=== PATIENT | male | born 2000 | race Caucasian/White ===

== ENCOUNTER 2022-12-19 07:27 | Outpatient (REF) | payer OTHER, SELFPAY ==
[2022-12-19 11:24] LABS: MANUAL DIFF FLAG NO
[2022-12-19 11:48] LABS: Basophils Percent Auto 0.2 % (0-2); Eosinophils Absolute Auto 0.3 X10*3/uL (0.0-0.4); Eosinophils Percent Auto 5.6 % (0-4); Hematocrit 45.6 % (42.0-52.0); Hemoglobin 14.7 g/dl (14.0-18.0); Imm Gran Abs Auto 0.01 X10*3/uL (0.00-0.03); Imm Gran Pct Auto 0.2 % (0.0-0.4); Lymphocytes Absolute Auto 2.1 X10*3/uL (1.2-4.9); Lymphocytes Percent Auto 36.3 % (20-40); Mean Corpuscular HGB Conc 32.2 g/dl (31.0-36.0); Mean Corpuscular Hemoglobin 28.6 pg (27.0-33.0); Mean Corpuscular Volume 88.7 fL (80.0-98.0); Mean Platelet Volume 9.6 fL (9.4-12.4); Monocytes Absolute Auto 0.5 X10*3/uL (0.1-1.2); Monocytes Percent Auto 9.2 % (2-11); Neutrophils Absolute Auto 2.8 x10*3/uL (2.0-8.3); Neutrophils Percent Auto 48.5 % (45-73); Platelet Count 367 X10*3/uL (160-400); Red Blood Count 5.14 X10*6/uL (4.60-5.80); Red Cell Distribution Width 12.4 % (11.0-16.0); White Blood Count 5.7 X10*3/uL (4.8-10.8)
[2022-12-19 12:14] LABS: Troponin-I High Sensitivity < 3.5 ng/L (<3.5-35.0)
[2022-12-19 12:23] LABS: Alanine Aminotransferase 31 U/L (0-40); Albumin Level 4.1 g/dL (3.5-5.0); Alkaline Phosphatase 96 U/L (39-117); Anion Gap 14 (12-20); Aspartate Amino Transferase 18 U/L (5-37); Bilirubin Total 0.5 mg/dL (0.0-1.0); Blood Urea Nitrogen 12 mg/dL (9-16); Calcium 9.3 mg/dL (8.4-10.2); Carbon Dioxide 25 mmol/L (22-29); Chloride 105 mmol/L (96-108); Estimated Glomerular Filt Rate > 60; Glucose Random 120 mg/dL (60-115); Potassium 4.9 mmol/L (3.3-5.1); Sodium 139 mmol/L (135-145); TSH reflex Free T4 2.32 uIU/mL (0.32-4.0); Total Protein 8.3 g/dL (6.5-8.0)
== END 2022-12-19 07:28 | disposition home or self-care (01) ==
LOC: HO.WFDLDS 07:27
PROVIDERS: Visit Provider Family Medicine
DX: Z00.00 Encounter for general adult medical examination without abnormal findings (principal); R00.0 Tachycardia, unspecified
CPT/HCPCS: 36415; 80053; 84443; 84484; 85025

== ENCOUNTER 2022-12-28 07:12 | Outpatient (REF) | payer OTHER, SELFPAY ==
--- NOTE | ~2022-12-28 | XR_ITS ---
EXAMINATION: XR CHEST CLINICAL INFORMATION: Tachycardia COMPARISON: None available. TECHNIQUE: 2 views of the chest were obtained. FINDINGS: No significant abnormality is noted involving the heart, lungs, mediastinum, bony thorax or soft tissues. XR/XR chest 2V IMPRESSION: No acute disease.
== END 2022-12-28 07:13 | disposition home or self-care (01) ==
LOC: HO.XRAY 07:12
PROVIDERS: PCP Family Medicine; Visit Provider Family Medicine
DX: R00.0 Tachycardia, unspecified (principal); R94.31 Abnormal electrocardiogram [ECG] [EKG]
CPT/HCPCS: 71046

== ENCOUNTER → 2023-01-03 14:16 | Outpatient (BNVA) | payer OTHER, SELFPAY | PROVIDERS: PCP Family Medicine; Visit Provider Internal Medicine | DX: Z13.89 Encounter for screening for other disorder (principal) ==

== ENCOUNTER → 2023-02-01 09:57 | Outpatient (REF) | payer OTHER, SELFPAY ==
--- NOTE | 2023-02-01 10:00 | HM_ITS ---
Conclusion: 1. Patient was monitored for total period of 3 days 2. Baseline was normal sinus rhythm with average heart of 84 beats per minute 3. No significant pauses or bradycardia noted 4. Occasional PVCs noted with total burden of 0.3% 5. No patient reported events MTDD
--- NOTE | 2023-02-01 10:00 | CA_ITS ---
Transthoracic Echocardiogram Patient (Last, First, Middle): Jamarcus Zendejas J Gender: Male Date of : 2000 Age: 22 Procedure Date: 02/01/2023 Procedure Type: Transthoracic Echocardiogram Location: OP Height: 177.8 cm Weight: 136.08 kg BSA: 2.48 m2 Heart Rate: 116 bpm BP: 152 / 80 mmHg Parachute Rigger: SB Referring MD: Konrad Boston MD Symptoms: R00.0 - Tachycardia, unspecified Study Quality: Adequate w contrast ECG Rhythm: Sinus tachycardia Conclusions: - The left ventricular systolic function is normal. The calculated ejection fraction is 67% by biplane method. - No obvious valvular pathology seen on this study. Findings Procedure Information Contrast agent, definity, is being given per protocol without apparent complications. Left Ventricle Normal left ventricular cavity size. There is mildly increased left ventricular wall thickness. The left ventricular systolic function is normal. The calculated ejection fraction is 67% by biplane method. There is no evidence of regional wall motion abnormalities. Diastolic function is normal for age. Right Ventricle Normal right ventricular cavity size and systolic function. Atria Both atria are normal in size. Aortic Valve The aortic valve was not well visualized. There is no aortic valve stenosis. There is no aortic valve regurgitation. Mitral Valve The mitral valve appears normal. There is no mitral valve regurgitation. There is no mitral valve stenosis. Pulmonic Valve The pulmonic valve is likely normal. Tricuspid Valve There is no tricuspid valve regurgitation. Tricuspid regurgitation envelope is inadequate for calculation of right ventricular systolic pressure. Great Vessels The asc aorta is normal in size. Venous The inferior vena cava is normal in size and collapses less than 50% with inspiration. Pericardium/Pleural There is no evidence of pericardial effusion. Prior Study Comparison No prior study available for comparison. Recommendations, Care & Conclusions No obvious valvular pathology seen on this study. Measurements 2D Linear Measurements IVSd: 1.18 0.6-0.9/0.6-1.0 cm LVIDd: 4.29 3.9-5.3/4.2-5.9 cm LVIDd Index: 1.73 2.4-3.2/2.2-3.1 cm/m2 LVIDs: 2.75 2.0-3.6 cm LVPWd: 1.04 0.7-1.1 cm LA Diam: 3.70 2.7-3.8/3.0-4.0 cm LAIDs Index: 1.49 1.5-2.3 cm/m2 LV Mass: 204.82 67-162/88-224 g LV Mass Index: 82.59 43-95/49-115 g/m2 LVOT Diam: 2.00 3.0+(-)1.3 cm 2D Systolic Function EF 4C: 70.00 >55% EF 2C: 63.60 >55% EF BiP: 67.30 >55% Mitral Valve MV Pk E: 0.69 MV PK A: 0.64 MV Decel Time: 123.00 E/A: 1.10 E'Lateral: 14.00 E'Medial: 9.25 E/E' Med: 7.40 E/E' Lat: 4.90 PHT: 36.00 MVA PHT: 6.11 Decel Haralson: 5.58 Aortic Valve AoV Pk Rafa: 1.14 AoV Pk Grad: 5.00 WILMAN: 3.00 LVOT LVOT Pk Rafa: 1.09 LVOT Mn Rafa: 0.71 LVOT VTI: 0.16 LVOT Pk Grad: 5.00 LVOT Mn Grad: 2.00 LVOT Diam: 2.00 LVOT Area: 3.14 Diastolic Function MV Pk E: 0.69 MV Pk A: 0.64 E/A: 1.10 E'Medial: 9.25 E/E' Med: 7.40 E' Laterial: 14.00 E/E' Lat: 4.90 Right Ventricle TAPSE (mm): 17.00 TVS' Rafa: 15.30 Tricuspid Valve RA Press: 8.00 Great Vessels Aorta Sinus of Valsalva: 3.20 2.0-3.5 cm Ao Asc: 2.80 2.1-3.4 cm Ao Arch: 2.70 Ao Desc: 1.70 Pulmonary Valve PV Pk Rafa: 1.29 Peak PV Grad: 7.00 Updated in Other Vendor System with Status of Final Konrad Boston MD electronically signed on 02/02/2023 11:39:38 AM with status of Final
== END ==
LOC: HO.CARD 09:57
PROVIDERS: PCP Family Medicine; Visit Provider Internal Medicine
DX: R00.0 Tachycardia, unspecified (principal); I49.3 Ventricular premature depolarization; G47.33 Obstructive sleep apnea (adult) (pediatric)
CPT/HCPCS: 93242; 93306; Q9957

== ENCOUNTER → 2023-03-02 13:01 | Outpatient (REF) | payer OTHER, SELFPAY | LOC: HO.SL 13:01 | PROVIDERS: PCP Family Medicine; Visit Provider Internal Medicine | DX: G47.33 Obstructive sleep apnea (adult) (pediatric) (principal); R00.0 Tachycardia, unspecified | CPT/HCPCS: 95806 ==

== ENCOUNTER → 2023-03-02 13:07 | Outpatient (BNV) | payer OTHER, SELFPAY | PROVIDERS: PCP Family Medicine; Visit Provider Internal Medicine | DX: R06.83 Snoring (principal) | CPT/HCPCS: 95806 ==

== ENCOUNTER → 2023-04-05 15:55 | Outpatient (REF) | payer OTHER, SELFPAY | LOC: HO.SL 15:55 | PROVIDERS: PCP Family Medicine; Visit Provider Internal Medicine | DX: G47.33 Obstructive sleep apnea (adult) (pediatric) (principal); R00.0 Tachycardia, unspecified | CPT/HCPCS: 95806 ==

== ENCOUNTER → 2023-04-05 19:00 | Outpatient (BNV) | payer OTHER, SELFPAY | PROVIDERS: PCP Family Medicine; Visit Provider Internal Medicine | DX: R06.83 Snoring (principal) | CPT/HCPCS: 95806 ==

== ENCOUNTER 2023-04-06 14:40 | Outpatient (AMB) | payer OTHER, SELFPAY ==
--- NOTE | 2023-04-06 14:42 | MHC.OFFVIS ---
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: No Accompanied by: Self / Same As Patient Allergies Nuts Allergy (Unknown, Uncoded 04/06/23 14:46) anaphylaxis oxycodone Allergy (Unknown, Uncoded 04/06/23 14:46) nausea and vomiting Medication List - Last Reconciled 04/06/23 by Konrad Boston MD cetirizine (Zyrtec) 10 mg PO DAILY fluticasone propionate 220 mcg/actuation (Flovent HFA) 1 puff inhalation Q12H 30 days metoprolol succinate ER 75 mg (1.5 x 50 mg) PO DAILY 30 days montelukast 10 mg PO DAILY tiotropium bromide (Spiriva with HandiHaler) 1 cap inhalation DAILY 30 days HPI HPI Comments History of Present Illness Details Jamarcus returns for follow-up. Recently seen in consultation regarding tachycardia. Patient himself does not have any known cardiac issues including cardiomyopathy or congestive heart failure. He states he has asthma but well controlled. Within limits of his activity, he does not really feel any symptoms like shortness of breath or chest pains or palpitations or in fact anything else of cardiac nature. Apparently, he was on Adderall and primary care physician at stopped it. He has also been put on beta-blockers. Otherwise, he is clearly overweight. No known obstructive sleep apnea. He has completed an echocardiogram, Holter and sleep study. [facility] Surgical History Hx of myringotomy Hx of tonsillectomy Family History Mother No problems noted. Father No problems noted. Social History Housing: House Patient Tobacco Use Status: Never used Tobacco e-Cigarette/Vaping Use: Never Used Second Hand Smoke Exposure: No service: No Current occupational status: employed and student Current occupational exposures/hazards: No Cognitive needs: No Hearing needs: No Vision needs: No Review of Systems Const Denies weakness ENT Denies dizziness Card Denies chest pain, Denies chest pain with activity, Denies syncope, Denies rapid heart rate, Denies pedal edema, Denies edema, Denies leg edema, Denies lightheadedness, Denies palpitations, Denies dyspnea, Denies dyspnea on exertion and Denies orthopnea Resp Denies cough, Denies dyspnea and Denies dyspnea on exertion GI Denies hematochezia and Denies change in stool character Musc Denies abnormal gait, Denies muscle cramps, Denies muscle weakness, Denies numbness, Denies radiating pain into limb and Denies tingling Neuro Denies abnormal gait, Denies dizziness, Denies syncope, Denies numbness, Denies tingling and Denies weakness Endo Denies palpitations Physical Exam Vital Signs: Last Vital Signs Pulse 130 H 04/06/23 14:43 BP 130/90 H 04/06/23 14:43 BMI result Body Mass Index 42.1 Const General: comfortable and no acute distress Orientation/consciousness: patient oriented x3 HEENT Other: Unremarkable Head: Yes normal to inspection Neck Neck: Yes normal visual inspection Chest Chest palpation & inspection: normal inspection of the chest Resp Auscultation: clear to auscultation bilaterally Cardio Palpation: normal PMI Heart sounds: S1 normal heart sound present, S2 normal heart sound present, no gallops, no murmurs and no rubs GI Palpation (GI): Soft to palpation Back/Spine/Pelvis Other: unremarkable Skin General skin exam: no rashes or lesions noted Neuro General: patient oriented x3 Extrem General: Yes normal to inspection Psych Mental Status: mental status grossly normal Assessment & Plan Assessment & Plan (1) Tachycardia: Code(s): R00.0 - Tachycardia, unspecified (2) Obese: Code(s): E66.9 - Obesity, unspecified (3) Asthma, moderate persistent: Code(s): J45.40 - Moderate persistent asthma, uncomplicated Plan Pertinent data reviewed. Recent EKG shows sinus tachycardia. Echocardiogram with LVEF of 67%. No wall motion abnormalities. Otherwise unremarkable. Holter shows normal sinus rhythm; average heart rate of 84/Min. About 10% the time, rate greater than 100/Min. In the sleep study, no evidence of sleep apnea. Excessive snoring. Overall, sinus tachycardia could be related to some combination of obesity, asthma, inappropriate sinus tachycardia. He is on some beta-blockers that may be continued for now. Main recommendation however, is to lose weight. He can try his own way but if that is not successful, then seek help from bariatric steam. We discussed about this today. Continue to avoid Adderall. We will reassess in 1 year. In the interim, he will call with concerns. Total time spent including review of data, counseling, documentation, coordination of care-32 minutes. Orders: Orders CA echo transthoracic complete 51 Days I42.9 - Cardiomyopathy, unspecified, R00.0 - Tachycardia, unspecified ECG 3 day holter monitor 51 Weeks R00.0 - Tachycardia, unspecified, R00.2 - Palpitations Coding Level of Care Code Est Pt Level 4 (47425) Diagnoses Tachycardia R00.0 Obese E66.9 Asthma, moderate persistent J45.40
[2023-04-06 14:43] VITALS: BP 130/90; PULSE 130; BMI 42.1
== END 2023-04-06 15:00 | disposition home or self-care (01) ==
PROVIDERS: Visit Provider Internal Medicine
DX: R00.0 Tachycardia, unspecified (principal); E66.9 Obesity, unspecified; J45.40 Moderate persistent asthma, uncomplicated
CPT/HCPCS: 99214

== ENCOUNTER → 2023-04-06 14:40 | Outpatient (BNVA) | payer OTHER, SELFPAY | PROVIDERS: Visit Provider Internal Medicine ==

== ENCOUNTER 2023-04-20 14:25 | Outpatient (AMB) | payer OTHER, SELFPAY ==
--- NOTE | 2023-04-20 14:27 | MHC.PC.OV ---
Vital Signs 04/20/23 14:28 Height 5 ft 11.5 in Weight 311 lb 4 oz BMI 42.8 BP 134/74 Blood Pressure Location Rt brachial Position Sitting Pulse 91 Pulse Source Pulse Oximeter Pulse Oximetry (%) 98 Oxygen Delivery Method Room Air Intake Visit Reasons: f/u asthma, tachycardia Intake Note: Patient is here to follow up on asthma, and tachycardia. Allergies Nuts Allergy (Unknown, Uncoded 04/20/23 14:31) anaphylaxis oxycodone Allergy (Unknown, Uncoded 04/20/23 14:31) nausea and vomiting Tobacco use date assessed: 04/20/23 Dental Screening Dental Screen Date: 04/20/23 Did you have a dental visit in the last 12 months?: Yes Did you have a dental problem in the last 6 months where you did not have access to dental care?: No Was dental information given to patient?: No HPI f/u asthma, tachycardia HPI Details 22 y/o male presents to f/u asthma and tachycardia. Cardiology work up had included Holter monitor test and echocardiogram, which were okay. He had seen Cardiology 04/06/23 - Dr. Boston. Per Cardiology note they had recommended to continue avoid Adderall. Main recommendation is to lose weight. PFSH Surgical History Hx of myringotomy Hx of tonsillectomy Family History Mother No problems noted. Father No problems noted. 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 Umesh Jaramillo, Vandana Galvez, Pastor Barone and colleagues, with an educational torres from [employer]. ACT Questionnaire In the past 4 weeks, how much of the time did your asthma keep you from getting as much done at work, school or at home?: None of the time During the past 4 weeks, how often have you had shortness of breath?: Not at all During the past 4 weeks, how often did your asthma symptoms wake you up at night or earlier than usual in the morning?: Not at all During the past 4 weeks, how often have you had to use your rescue inhaler or nebulizer medication?: Not at all How would you rate your asthma control during the past 4 weeks?: Completely controlled Score: 25 Review of Systems Const Denies chills, Denies fatigue, Denies fever(s), Denies headache(s) and Denies weakness ENT Denies dizziness and Denies headache(s) Card Denies chest pain, Denies lightheadedness, Denies dyspnea and Denies other (Palpitations) Resp Denies cough, Denies dyspnea, Denies wheezing and Denies other ( shortness of breath) Musc Denies numbness and Denies tingling Neuro Denies dizziness, Denies headache(s), Denies numbness, Denies tingling, Denies paresthesias and Denies weakness Psych Denies anxiety and Denies depression Endo Denies fatigue Aller/Immun Denies wheezing Physical exam (Primary Care) Vital Signs: Last Vital Signs Pulse 91 04/20/23 14:28 BP 134/74 04/20/23 14:28 Pulse Ox 98 04/20/23 14:28 Oxygen Delivery Method Room Air 04/20/23 14:28 BMI result Body Mass Index 42.8 Tobacco/Smoking Status: Tobacco use Status Tobacco use date assessed 04/20/23 04/20/23 14:36 Patient Tobacco Use Status Never used Tobacco 04/20/23 14:36 e-Cigarette/Vaping Use Never Used 04/20/23 14:36 Thrive Assessment: Date of Thrive Assessment Date Thrive assessed 08/05/21 04/20/23 14:36 Const General: no acute distress and well developed Nutritional Appearance: obese morbidly obese Orientation/consciousness: patient oriented x3 HENMT Head: Yes normocephalic and Yes atraumatic Eyes General: appearance normal, both eyes and all related structures Pupils: Equal, round and reactive pupils present EOM: EOMs intact bilaterally Resp Effort & Inspection: normal respiratory effort Auscultation: clear to auscultation bilaterally Cardio Rate: regular rate Rhythm: regular rhythm Heart sounds: S1 normal heart sound present, S2 normal heart sound present, no gallops, no murmurs and no rubs Neuro General: patient oriented x3 and gait normal Cranial nerves: Yes Equal, round and reactive pupils present Psych Affect: normal affect Assessment and Plan Assessment & Plan (1) ADHD (attention deficit hyperactivity disorder), combined type: Code(s): F90.2 - Attention-deficit hyperactivity disorder, combined type Plan: Patient with ADHD who had been on Adderall which we discontinued due to tachycardia presents for follow-up ADHD. Heart rates had improved somewhat with discontinuance of Adderall and particularly Wixela which was changed to Spiriva for asthma. Patient saw Cardiology and his heart rate that day was 130. It was recommended that he get more exercise and remain off Adderall and Wixela. Will have patient trial bupropion for ADHD. Heart rate today in the office was 91 and I recheck this and is certainly in the 90s. Encouraged him to continue to work at exercise and weight loss. If he is needing more control of ADHD then we can provide with non stimulant medications, would consider a trial of a stimulant medication if he can bring his heart rate down into the 70s and we would follow closely. (2) Tachycardia: Code(s): R00.0 - Tachycardia, unspecified Plan: For now, remain off stimulant medications and Wixela Will follow (3) Obese: Code(s): E66.9 - Obesity, unspecified Plan: Encouraged exercise Will monitor weight (4) Asthma, moderate persistent: Code(s): J45.40 - Moderate persistent asthma, uncomplicated Plan: Controlled Continue Spiriva and Flovent Coding Level of Care Code Est Pt Level 4 (68576) Diagnoses ADHD (attention deficit hyperactivity disorder), combined type F90.2 Tachycardia R00.0 Obese E66.9 Asthma, moderate persistent J45.40
[2023-04-20 14:28] VITALS: BP 134/74; PULSE 91; O2SAT 98; BMI 42.8
== END 2023-04-20 15:25 | disposition home or self-care (01) ==
PROVIDERS: PCP Family Medicine; Visit Provider Family Medicine
DX: J45.40 Moderate persistent asthma, uncomplicated (principal); F90.2 Attention-deficit hyperactivity disorder, combined type; E66.9 Obesity, unspecified; Z68.41 Body mass index [BMI] 40.0-44.9, adult; R00.0 Tachycardia, unspecified
CPT/HCPCS: 99214

== ENCOUNTER 2023-05-19 14:53 | Outpatient (AMB) | payer OTHER, SELFPAY ==
--- NOTE | 2023-05-19 15:16 | MHC.OFFWIV ---
Intake Intake Visit Reasons: Follow-up ADHD and tachycardia Patient Tobacco Use Status: Never used Tobacco Allergies Nuts Allergy (Unknown, Uncoded 04/20/23 14:31) anaphylaxis oxycodone Allergy (Unknown, Uncoded 04/20/23 14:31) nausea and vomiting PFSH Surgical History Hx of myringotomy Hx of tonsillectomy Family History Mother No problems noted. Father No problems noted. Social History Housing: House Patient Tobacco Use Status: Never used Tobacco e-Cigarette/Vaping Use: Never Used Second Hand Smoke Exposure: No service: No Current occupational status: employed and student Current occupational exposures/hazards: No Cognitive needs: No Hearing needs: No Vision needs: No Coding Diagnoses
[2023-05-19 15:18] VITALS: BP 130/82; PULSE 89; O2SAT 99; BMI 42.5
--- NOTE | 2023-05-19 15:22 | MHC.PC.OV ---
Vital Signs 05/19/23 15:18 Height 5 ft 11.5 in Weight 309 lb BMI 42.5 BP 130/82 Blood Pressure Location Lt brachial Position Standing Pulse 89 Pulse Source Pulse Oximeter Pulse Oximetry (%) 99 Oxygen Delivery Method Room Air Intake Visit Reasons: Follow-up ADHD and tachycardia Allergies Nuts Allergy (Unknown, Uncoded 05/19/23 15:21) anaphylaxis oxycodone Allergy (Unknown, Uncoded 05/19/23 15:21) nausea and vomiting Tobacco use date assessed: 04/20/23 HPI Follow-up ADHD and tachycardia HPI Details 23 y/o male presents to f/u ADHD and tachycardia. Had started him on bupropion. Blood pressure today 130/82, 89p. He reports he is followed by Cardiology yearly for his tachycardia. He reports he had been on bupropion 75mg b.i.d. for a month and he notes this has been helping. [facility] Surgical History Hx of myringotomy Hx of tonsillectomy Family History Mother No problems noted. Father No problems noted. 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 Umesh Jaramillo, Vandana Galvez, Pastor Barone and colleagues, with an educational torres from [employer]. Review of Systems Const Denies chills, Denies fatigue, Denies fever(s), Denies headache(s) and Denies weakness ENT Denies dizziness and Denies headache(s) Card Denies chest pain, Denies lightheadedness, Denies dyspnea and Denies other (Palpitations) Resp Denies cough, Denies dyspnea, Denies wheezing and Denies other ( shortness of breath) Musc Denies numbness and Denies tingling Neuro Denies dizziness, Denies headache(s), Denies numbness, Denies tingling, Denies paresthesias and Denies weakness Psych Denies anxiety and Denies depression Endo Denies fatigue Aller/Immun Denies wheezing Physical exam (Primary Care) Vital Signs: Last Vital Signs Pulse 89 05/19/23 15:18 BP 130/82 05/19/23 15:18 Pulse Ox 99 05/19/23 15:18 Oxygen Delivery Method Room Air 05/19/23 15:18 BMI result Body Mass Index 42.5 Tobacco/Smoking Status: Tobacco use Status Tobacco use date assessed 04/20/23 05/19/23 15:38 Patient Tobacco Use Status Never used Tobacco 05/19/23 15:38 e-Cigarette/Vaping Use Never Used 05/19/23 15:38 Thrive Assessment: Date of Thrive Assessment Date Thrive assessed 08/05/21 05/19/23 15:38 Const General: no acute distress and well developed Nutritional Appearance: well nourished Orientation/consciousness: patient oriented x3 HENMT Head: Yes normocephalic and Yes atraumatic Eyes General: appearance normal, both eyes and all related structures Pupils: Equal, round and reactive pupils present EOM: EOMs intact bilaterally Resp Effort & Inspection: normal respiratory effort Auscultation: clear to auscultation bilaterally Cardio Rate: regular rate Rhythm: regular rhythm Heart sounds: S1 normal heart sound present, S2 normal heart sound present, no gallops, no murmurs and no rubs Neuro General: patient oriented x3 and gait normal Cranial nerves: Yes Equal, round and reactive pupils present Psych Affect: normal affect Assessment and Plan Assessment & Plan (1) ADHD (attention deficit hyperactivity disorder), combined type: Code(s): F90.2 - Attention-deficit hyperactivity disorder, combined type Plan: Bupropion is helping. Avoiding Adderall as this was causing tachycardia Will switch to bupropion XR 150 once a day Follow-up in a few months (2) Tachycardia: Code(s): R00.0 - Tachycardia, unspecified Plan: This was likely caused by Adderall and also some cardiovascular deconditioning Off of Adderall his tachycardia has resolved though his heart rate is still at the upper limits of normal Encouraged exercise and weight loss Coding Level of Care Code Est Pt Level 3 (52605) Diagnoses ADHD (attention deficit hyperactivity disorder), combined type F90.2 Tachycardia R00.0
== END 2023-05-19 15:43 | disposition home or self-care (01) ==
PROVIDERS: PCP Family Medicine; Visit Provider Family Medicine
DX: F90.2 Attention-deficit hyperactivity disorder, combined type (principal); R00.0 Tachycardia, unspecified
CPT/HCPCS: 99213

== ENCOUNTER 2023-06-09 15:19 | Outpatient (AMB) | payer OTHER, SELFPAY ==
[2023-06-09 15:40] VITALS: BP 130/80; PULSE 110; TEMP 36.7; O2SAT 98; BMI 41.0
--- NOTE | 2023-06-09 15:40 | AM.OFFWIN_ITS ---
Intake Vital Signs 06/09/23 15:40 Height 5 ft 11.5 in Weight 298 lb BMI 41.0 BP 130/80 Blood Pressure Location Rt brachial Position Sitting Pulse 110 H Pulse Source Pulse Oximeter Temp 98.0 F Temp Source Temporal Artery Scan Pulse Oximetry (%) 98 Oxygen Delivery Method Room Air Intake Visit Reasons: EP, sore throat, cough ([phone]) Intake Note: pt is here for c/o sore throat, cough, bodyaches Patient Tobacco Use Status: Never used Tobacco Allergies Nuts Allergy (Unknown, Uncoded 06/09/23 15:41) anaphylaxis oxycodone Allergy (Unknown, Uncoded 06/09/23 15:41) nausea and vomiting Do you need a note to return to daycare/school/sports/work: Yes HPI HPI Comments History of Present Illness Details This is a 23-year-old male who presents to the office today for sick visit. Patient complaining of viral URI symptoms including congestion, rhinorrhea, myalgias, dry cough, and headaches for the past 3 days. He states that his symptoms are improving and he is requesting a work note to return to work on Monday. No chest pain, shortness of breath, or fevers/chills. PFSH Surgical History Hx of myringotomy Hx of tonsillectomy Family History Mother No problems noted. Father No problems noted. Social History Housing: House Patient Tobacco Use Status: Never used Tobacco e-Cigarette/Vaping Use: Never Used Second Hand Smoke Exposure: No service: No Current occupational status: employed and student Current occupational exposures/hazards: No Cognitive needs: No Hearing needs: No Vision needs: No Review of Systems Const All systems reviewed & are unremarkable except as noted in HPI and below Reports no additional complaints Eyes Reports no additional complaints ENT Reports no additional complaints Card Reports no additional complaints Resp Reports no additional complaints GI Reports no additional complaints Reports no additional complaints Musc Reports no additional complaints Skin/Breast Reports system reviewed and no additional complaints, except as documented Neuro Reports no additional complaints Psych Reports no additional complaints Endo Reports no additional complaints Paul/Lymph Reports no additional complaints Aller/Immun Reports no additional complaints Physical Exam Vital Signs: Last Vital Signs Temp 98.0 F 06/09/23 15:40 Pulse 110 H 06/09/23 15:40 BP 130/80 06/09/23 15:40 Pulse Ox 98 06/09/23 15:40 Oxygen Delivery Method Room Air 06/09/23 15:40 BMI result Body Mass Index 41.0 Const Other: Vital signs reviewed. Constitutional: Non-toxic appearing. No acute distress. Well-developed and well-nourished. HEENT: Normocephalic and atraumatic. Tympanic membranes without erythema, edema, or bulging bilaterally. External auditory canals without erythema or edema bilaterally. Moist mucous membranes. No pharyngeal erythema or exudates. Skin: Warm and dry. No rashes or lesions noted. Neck: Full and painless range of motion. No cervical lymphadenopathy. Cardio: Regular rate and rhythm. No murmurs, gallops, or rubs. No lower extremity edema. No JVD. Pulmonary: No respiratory distress. No accessory muscle usage. Clear to auscultation bilaterally without wheezing, crackles, or rhonchi. Gastrointestinal: Soft, nontender, and nondistended in all 4 quadrants. Normoactive bowel sounds in all 4 quadrants. Genitourinary: No CVA tenderness. Musculoskeletal: Normal range of motion in joints throughout the body. No deformity or other signs of injury. Neuro: Alert and oriented x4. Cranial nerves 2-12 grossly intact. No focal deficits appreciated. Psych: Normal mood and affect. Results AMB Rapid Strep AMB Rapid Strep Negative Last Edit by Mg Phan CMA on 06/09/23 15 :57 Results Reviewed Results Reviewed: Laboratory Last Values Strep Scn Rapid Clinic Negative 06/09/23 15:49 Assessment & Plan Assessment & Plan (1) Viral upper respiratory infection: Code(s): J06.9 - Acute upper respiratory infection, unspecified Plan: This is a 23-year-old male presenting to the office complaining of viral URI symptoms, which have been improving. Patient is requesting a work note to return to work on Monday. He was given a work note to return on 06/12/2023. Patient's vital signs are stable, his physical exam is benign, and he is overall nontoxic appearing. Patient discharged home with PCP follow-up. He was advised to follow-up here or proceed to the emergency room for persistent/ worsening symptoms. Patient verbalizes understanding and he is in agreement with the plan. Orders: Orders AMB Rapid Strep Screen Today Z13.9 - Encounter for screening, unspecified Coding Level of Care Code Est Pt Level 3 (44951) Diagnoses Viral upper respiratory infection J06.9
== END 2023-06-09 16:17 | disposition home or self-care (01) ==
PROVIDERS: PCP Family Medicine; Visit Provider Physician Assistant Medical
DX: J06.9 Acute upper respiratory infection, unspecified (principal); J02.9 Acute pharyngitis, unspecified
CPT/HCPCS: 87880; 99213

== ENCOUNTER 2023-08-21 14:16 | Outpatient (AMB) | payer OTHER, SELFPAY ==
[2023-08-21 14:26] VITALS: BP 116/78; PULSE 100; RESP 13; TEMP 36.4; O2SAT 99; BMI 40.8
--- NOTE | 2023-08-21 14:26 | MHC.PC.OV ---
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 Accompanied by: Self / Same As Patient Allergies Nuts Allergy (Unknown, Uncoded 06/09/23 15:41) anaphylaxis oxycodone Allergy (Unknown, Uncoded 08/21/23 14:31) Nausea Medication List - Last Reconciled 08/21/23 by Raphael Monet MD bupropion HCl 150 mg PO QAM 30 days cetirizine (Zyrtec) 10 mg PO DAILY fluticasone propionate 220 mcg/actuation (Flovent HFA) 1 puff inhalation Q12H 30 days metoprolol succinate ER 75 mg (1.5 x 50 mg) PO DAILY 30 days montelukast 10 mg PO DAILY tiotropium bromide (Spiriva with HandiHaler) 1 cap inhalation DAILY 30 days Tobacco use date assessed: 04/20/23 Dental Screening Dental Screen Date: 08/21/23 Did you have a dental visit in the last 12 months?: Yes Did you have a dental problem in the last 6 months where you did not have access to dental care?: No Was dental information given to patient?: Patient has dentist HPI Follow-up ADHD HPI Details 23 y/o male presents to f/u ADHD. Pt reports some difficulty with getting tasks done but otherwise has been doing well in school. He is using bupropion for his symptoms. He states adderall/stimulant medication has worked better but caused tachycardia. HPI Comments History of Present Illness Details Documentation assistance for Raphael Monet MD, was provided by Heriberto Love,? Senior Radiation Therapist on 08/21/2023 3:24 PM MONICA. Yaritza, Dr. Monet, have read, observed, and verified documentation.? PFSH Medical History No pertinent past medical history Surgical History Hx of tonsillectomy Hx of myringotomy Family History Mother No problems noted. Father No problems noted. 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 1. Little interest or pleasure in doing things: not at all 2. Feeling down, depressed, or hopeless: not at all 3. Trouble falling or staying asleep, or sleeping too much: not at all 4. Feeling tired or having little energy: not at all 5. Poor appetite or overeating: not at all 6. Feeling bad about yourself - or that you are a failure or have let yourself or your family down: not at all 7. Trouble concentrating on things, such as reading the newspaper or watching television: not at all 8. Moving or speaking so slowly that other people could have noticed. Or the opposite - being so fidgety or restless that you have been moving around a lot more than usual: not at all 9. Thoughts that you would be better off or of hurting yourself in some way: not at all Total score: 0 Depression Screening Interpretation: Negative Depression Screening Done: Yes 72733 - PHQ-9 Billing: Yes Source: Developed by Drs. Umesh Jaramillo, Vandana Galvez, Pastor Barone and colleagues, with an educational torres from [employer]. Thrive Questionnaire Date Thrive assessed: 08/05/21 QUINTON-7 AMB Questionnaire QUINTON-7 Date QUINTON - 7 assessed: 08/21/23 Feeling nervous, anxious, or on edge: 1 = Several days Not being able to stop or control worryin = Several days Worrying too much about different things: 0 = Not at all Trouble relaxin = Not at all Being so restless that it is hard to sit still: 1 = Several days Becoming easily annoyed or irritable: 0 = Not at all Feeling afraid as if something awful might happen: 0 = Not at all Total QUINTON-7 score (0-4 normal; 5-9 mild; 10-14 moderate; 15-21 severe): 3 Source: Developed by Drs. Umesh Jaramillo, Vandana Galvez, Pastor Barone and colleagues, with an educational torres from [employer]. QUINTON-7 Assessment Billing QUINTON-7 Assessment Tool: QUINTON-7 Assessment 17995 ACT Questionnaire In the past 4 weeks, how much of the time did your asthma keep you from getting as much done at work, school or at home?: None of the time During the past 4 weeks, how often have you had shortness of breath?: Not at all During the past 4 weeks, how often did your asthma symptoms wake you up at night or earlier than usual in the morning?: Not at all During the past 4 weeks, how often have you had to use your rescue inhaler or nebulizer medication?: Not at all How would you rate your asthma control during the past 4 weeks?: Completely controlled ACT Interpretation: Negative Score: 25 Review of Systems Const Denies chills, Denies fatigue, Denies fever(s), Denies headache(s) and Denies weakness ENT Denies dizziness and Denies headache(s) Card Denies chest pain, Denies lightheadedness, Denies dyspnea and Denies other (Palpitations) Resp Denies cough, Denies dyspnea, Denies wheezing and Denies other ( shortness of breath) Musc Denies numbness and Denies tingling Neuro Denies dizziness, Denies headache(s), Denies numbness, Denies tingling, Denies paresthesias and Denies weakness Psych Denies anxiety and Denies depression Endo Denies fatigue Aller/Immun Denies wheezing Physical exam (Primary Care) Vital Signs: Last Vital Signs Temp 97.6 F 08/21/23 14:26 Pulse 100 08/21/23 14:26 Resp 13 08/21/23 14:26 BP 116/78 08/21/23 14:26 Pulse Ox 99 08/21/23 14:26 Oxygen Delivery Method Room Air 08/21/23 14:26 BMI result Body Mass Index 40.8 Tobacco/Smoking Status: Tobacco use Status Tobacco use date assessed 04/20/23 08/21/23 14:36 Patient Tobacco Use Status Never used Tobacco 08/21/23 14:36 e-Cigarette/Vaping Use Never Used 08/21/23 14:36 PHQ-9: PHQ-9 Score PHQ-9: Total score 0 08/21/23 15:17 Depression Screening Interpretation: Negative Thrive Assessment: Date of Thrive Assessment Date Thrive assessed 08/05/21 08/21/23 14:36 Const General: no acute distress and well developed Nutritional Appearance: obese morbidly obese Orientation/consciousness: patient oriented x3 HENOR Head: Yes normocephalic and Yes atraumatic Eyes General: appearance normal, both eyes and all related structures Pupils: Equal, round and reactive pupils present EOM: EOMs intact bilaterally Resp Effort & Inspection: normal respiratory effort Auscultation: clear to auscultation bilaterally Cardio Rate: regular rate Rhythm: regular rhythm Heart sounds: S1 normal heart sound present, S2 normal heart sound present, no gallops, no murmurs and no rubs Neuro General: patient oriented x3 and gait normal Cranial nerves: Yes Equal, round and reactive pupils present Psych Affect: normal affect Assessment and Plan Assessment & Plan (1) ADHD (attention deficit hyperactivity disorder), combined type: Code(s): F90.2 - Attention-deficit hyperactivity disorder, combined type Plan: Patient?notes?that?bupropion?has?helped?a?little?though?it?has?not?improved?significantly?with?increases?in?bupropion?and?he?is?still?struggling?with?focus/concentration.. Has?not?been?able?to?tolerate?Adderall?which?was?working?well?for?his?concentration?but?was?causing?significant?tachycardia. Reviewing?medications,?Strattera?can?also?cause?tachycardia?but?likely?to?a?lesser?extent?than?Adderall.??Patient?had?tried?Vyvanse?as?child?and?this?did?not?help?at?all. Will?continue?bupropion?for?now. Encouraged?patient?that?if?he?can?work?at?cardiovascular?fitness?and?exercise?and?weight?loss,?he?may?be?able?to?get?his?heart?rates?down?into?the?80s. If?patient?can?get?his?heart?rate?into?the?80s?we?will?try?Strattera.??Patient?agrees?with?plan. Will?follow-up?in?about?2?months (2) Tachycardia: Code(s): R00.0 - Tachycardia, unspecified Plan: Currently,?heart?rate?is?at?top?normal?in?the?90s?to?100. Plan?is?as?above Coding Level of Care Code Est Pt Level 3 (71615) Diagnoses ADHD (attention deficit hyperactivity disorder), combined type F90.2 Tachycardia R00.0 Additional Codes QUINTON-7 Assessment Billing - QUINTON-7 Assessment Tool: QUINTON-7 Assessment [id number] ([id number])
== END 2023-08-21 15:30 | disposition home or self-care (01) ==
PROVIDERS: PCP Family Medicine; Visit Provider Family Medicine
DX: F90.2 Attention-deficit hyperactivity disorder, combined type (principal); R00.0 Tachycardia, unspecified
CPT/HCPCS: 99213

== ENCOUNTER 2023-11-03 14:15 | Outpatient (AMB) | payer OTHER, SELFPAY ==
[2023-11-03 14:55] VITALS: BP 132/80; PULSE 94; O2SAT 97; BMI 39.7
--- NOTE | 2023-11-03 14:55 | A.OFFPC_ITS ---
Vital Signs 11/03/23 14:55 Height 5 ft 11 in Weight 285 lb BMI 39.7 BP 132/80 Blood Pressure Location Lt brachial Position Sitting Pulse 94 Pulse Source Pulse Oximeter Pulse Oximetry (%) 97 Oxygen Delivery Method Room Air Intake Visit Reasons: f/u ADHD, tachycardia Intake Note: Patient is here to follow up on ADHD and tachycardia. Patient would like refill of Spiriva today. Allergies Nuts Allergy (Unknown, Uncoded 11/03/23 14:57) anaphylaxis oxycodone Allergy (Unknown, Uncoded 11/03/23 14:57) Nausea Tobacco use date assessed: 11/03/23 Dental Screening Dental Screen Date: 11/03/23 Did you have a dental visit in the last 12 months?: Yes Did you have a dental problem in the last 6 months where you did not have access to dental care?: No Was dental information given to patient?: Patient has dentist HPI f/u ADHD, tachycardia HPI Details Patient?returns?to?follow-up?ADHD?and?tachycardia. Heart?rate?still?in?90s We?were?unable?to?continue?Adderall?due?to?tachycardia. Had?started?bupropion?which?he?notes?is?not?nearly?as?effective?though?does?h elp?somewhat. We?discussed?that?we?could?trial?Strattera?which?can?also?cause?tachycardia?but? less?so?than?Adderall. He?is?working?on?cardiovascular?fitness?with?a?goal?of?heart?rate?in?the?80s?to? consider?starting?Strattera. Exercising?and?losing?weight.??He?has?lost?7?lb?since?last?visit [facility] Medical History No pertinent past medical history Surgical History Hx of tonsillectomy Hx of myringotomy Family History Mother No problems noted. Father No problems noted. 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 1. Little interest or pleasure in doing things: not at all 2. Feeling down, depressed, or hopeless: not at all 3. Trouble falling or staying asleep, or sleeping too much: not at all 4. Feeling tired or having little energy: not at all 5. Poor appetite or overeating: not at all 6. Feeling bad about yourself - or that you are a failure or have let yourself or your family down: not at all 7. Trouble concentrating on things, such as reading the newspaper or watching television: not at all 8. Moving or speaking so slowly that other people could have noticed. Or the opposite - being so fidgety or restless that you have been moving around a lot more than usual: not at all 9. Thoughts that you would be better off or of hurting yourself in some way: not at all Total score: 0 Depression Screening Interpretation: Negative Depression Screening Done: Yes Source: Developed by Drs. Umesh Jaramillo, Vandana Galvez, Pastor Barone and colleagues, with an educational torres from [employer]. Thrive Questionnaire Date Thrive assessed: 11/03/23 I am a: Patient What is your living situation today?: I have a steady place to live Within the past 12 months, did the food you bought not last and you didn't have the money to get more?: Never true Within the past 12 months, did you worry whether your food would run out before you got money to buy more?: Never true Do you have trouble paying for medicines?: No Do you have trouble getting transportation to medical appointments?: No Do you have trouble paying your heating and electricity bill?: No Do you have trouble taking care of your child, family member or friend?: No Do you have trouble with day-to-day activities such as bathing, preparing meals, shopping, managing finances, etc.?: No Are you currently unemployed and looking for a job?: No Are you interested in more education?: No THRIVE Score: 0 AUDIT C Alcohol Use Questionnaire (AUDIT-C) 1. How often do you have a drink containing alcohol?: Monthly or less 2. How many drinks containing alcohol do you have on a typical day when you are drinking?: 1 or 2 3. How often do you have six or more drinks on one occasion?: Never Total Score: 1 QUINTON-7 AMB Questionnaire QUINTON-7 Date QUINTON - 7 assessed: 11/03/23 Feeling nervous, anxious, or on edge: 0 = Not at all Not being able to stop or control worryin = Not at all Worrying too much about different things: 0 = Not at all Trouble relaxin = Not at all Being so restless that it is hard to sit still: 0 = Not at all Becoming easily annoyed or irritable: 0 = Not at all Feeling afraid as if something awful might happen: 0 = Not at all Total QUINTON-7 score (0-4 normal; 5-9 mild; 10-14 moderate; 15-21 severe): 0 Source: Developed by Drs. Umesh Jaramillo, Vandana Galvez, Pastor Barone and colleagues, with an educational torres from [employer]. ACT Questionnaire In the past 4 weeks, how much of the time did your asthma keep you from getting as much done at work, school or at home?: None of the time During the past 4 weeks, how often have you had shortness of breath?: Not at all During the past 4 weeks, how often did your asthma symptoms wake you up at night or earlier than usual in the morning?: Not at all During the past 4 weeks, how often have you had to use your rescue inhaler or nebulizer medication?: Not at all How would you rate your asthma control during the past 4 weeks?: Completely controlled Score: 25 Review of Systems Const Denies chills, Denies fatigue, Denies fever(s), Denies headache(s) and Denies weakness ENT Denies dizziness and Denies headache(s) Card Denies chest pain, Denies lightheadedness, Denies dyspnea and Denies other (Palpitations) Resp Denies cough, Denies dyspnea, Denies wheezing and Denies other ( shortness of breath) Musc Denies numbness and Denies tingling Neuro Denies dizziness, Denies headache(s), Denies numbness, Denies tingling, Denies paresthesias and Denies weakness Psych Details: Still?having?difficulty?with?concentration.??Bupropion?helps?but?not?nearly?as?m uch?as?Adderall?did. Denies anxiety and Denies depression Endo Denies fatigue Aller/Immun Denies wheezing Physical exam (Primary Care) Vital Signs: Last Vital Signs Pulse 94 11/03/23 14:55 BP 132/80 11/03/23 14:55 Pulse Ox 97 11/03/23 14:55 Oxygen Delivery Method Room Air 11/03/23 14:55 BMI result Body Mass Index 39.7 Tobacco/Smoking Status: Tobacco use Status Tobacco use date assessed 11/03/23 11/03/23 15:06 Patient Tobacco Use Status Never used Tobacco 11/03/23 15:06 e-Cigarette/Vaping Use Never Used 11/03/23 15:06 PHQ-9: PHQ-9 Score PHQ-9: Total score 0 11/03/23 15:06 Depression Screening Interpretation: Negative Thrive Assessment: Date of Thrive Assessment Date Thrive assessed 11/03/23 11/03/23 15:06 Const General: no acute distress and well developed Nutritional Appearance: well nourished Orientation/consciousness: patient oriented x3 HENMT Head: Yes normocephalic and Yes atraumatic Eyes General: appearance normal, both eyes and all related structures Pupils: Equal, round and reactive pupils present EOM: EOMs intact bilaterally Resp Effort & Inspection: normal respiratory effort Auscultation: clear to auscultation bilaterally Cardio Other: Heart?rate?in?high?90s?by?auscultation Rate: regular rate Rhythm: regular rhythm Heart sounds: S1 normal heart sound present, S2 normal heart sound present, no gallops, no murmurs and no rubs Neuro General: patient oriented x3 and gait normal Cranial nerves: Yes Equal, round and reactive pupils present Psych Affect: normal affect Assessment and Plan Assessment & Plan (1) ADHD (attention deficit hyperactivity disorder), combined type: Code(s): F90.2 - Attention-deficit hyperactivity disorder, combined type Plan: Adderall?had?been?affective?but?he?was?unable?to?continue?it?due?to?tachycardia. Switched?him?to?bupropion?which?he?notes?is?not?nearly?as?effective?but?is?more? helpful?than?nothing. Continue?bupropion Continue?working?at?diet?exercise?weight?loss?a nd?improving?cardiovascular?fitness.??We?discussed?that?if?he?can?bring?his?rest ing?heart?rate?into?the?80s?we?could? try?Strattera?which,?while?still?might?cause?tachycardia,?it?is?like?likely?to?d o?so?than?Adderall. (2) Tachycardia: Code(s): R00.0 - Tachycardia, unspecified Plan: As?above Coding Level of Care Code Est Pt Level 3 (74342) Diagnoses ADHD (attention deficit hyperactivity disorder), combined type F90.2 Tachycardia R00.0
== END 2023-11-03 15:57 | disposition home or self-care (01) ==
PROVIDERS: PCP Family Medicine; Visit Provider Family Medicine
DX: F90.2 Attention-deficit hyperactivity disorder, combined type (principal); R00.0 Tachycardia, unspecified
CPT/HCPCS: 99213

== ENCOUNTER 2024-01-04 11:09 | Outpatient (AMB) | payer OTHER, SELFPAY ==
--- NOTE | 2024-01-04 11:30 | A.OFFPC_ITS ---
Vital Signs 01/04/24 11:53 Height 5 ft 11 in Weight 290 lb BMI 40.4 BP 128/74 Blood Pressure Location Lt brachial Position Sitting Pulse 97 Pulse Source Pulse Oximeter Pulse Oximetry (%) 97 Oxygen Delivery Method Room Air Intake Visit Reasons: f/u ADHD, tachycardia Intake Note: Patient is here to follow up on ADHD and tachycaria Allergies Nuts Allergy (Unknown, Uncoded 01/04/24 11:53) anaphylaxis oxycodone Allergy (Unknown, Uncoded 01/04/24 11:53) Nausea Medication List - Last Reconciled 01/04/24 by Raphael Monet MD bupropion HCl XL 150 mg PO QAM 30 days cetirizine (Zyrtec) 10 mg PO DAILY fluticasone propionate 220 mcg/actuation (Flovent HFA) 1 puff inhalation Q12H 30 days metoprolol succinate ER 75 mg (1.5 x 50 mg) PO DAILY 30 days montelukast 10 mg PO DAILY tiotropium bromide (Spiriva with HandiHaler) 1 cap inhalation DAILY 30 days Tobacco use date assessed: 01/04/24 Dental Screening Dental Screen Date: 01/04/24 Did you have a dental visit in the last 12 months?: Yes Did you have a dental problem in the last 6 months where you did not have access to dental care?: No Was dental information given to patient?: Patient has dentist HPI f/u ADHD, tachycardia HPI Details 23 y/o male presents to f/u ADHD and tac hycardia. Had switched him to bupropion as Adderall had been causing him tachycardia. Pulse today 97p. He has an appt. with Cardiology in March. Pt has complaints of a viral illness the past few days. HPI Comments History of Present Illness Details Documentation assistance for Raphael Monet MD, was provided by Heriberto Love,? Applications System Analyst on 01/04/2024 12:26 PM MONICA. I, Dr. Monet, have read, observed, and verified documentation. [facility] Medical History (Updated 01/04/24 @ 12:26 by Heriberto Love) ADHD No pertinent past medical history Surgical History Hx of tonsillectomy Hx of myringotomy Family History Mother No problems noted. Father No problems noted. 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 Umesh Jaramillo, Vandana Galvez, Pastor Barone and colleagues, with an educational torres from [employer]. Review of Systems Const Denies chills, Denies fatigue, Denies fever(s), Denies headache(s) and Denies weakness ENT Denies dizziness, Denies headache(s) and Reports nasal congestion Card Denies dyspnea Resp Denies cough, Denies dyspnea, Denies wheezing and Denies other (shortness of breath) Musc Denies numbness and Denies tingling Neuro Denies dizziness, Denies headache(s), Denies numbness, Denies tingling and Denies weakness Psych Denies anxiety and Denies depression Endo Denies fatigue Aller/Immun Denies wheezing Physical exam (Primary Care) Vital Signs: Last Vital Signs Pulse 97 01/04/24 11:53 BP 128/74 01/04/24 11:53 Pulse Ox 97 01/04/24 11:53 Oxygen Delivery Method Room Air 01/04/24 11:53 BMI result Body Mass Index 40.4 Tobacco/Smoking Status: Tobacco use Status Tobacco use date assessed 01/04/24 01/04/24 11:56 Patient Tobacco Use Status Never used Tobacco 01/04/24 11:31 e-Cigarette/Vaping Use Never Used 01/04/24 11:31 Thrive Assessment: Date of Thrive Assessment Date Thrive assessed 11/03/23 01/04/24 11:31 Const General: well developed; No acute distress Nutritional Appearance: well nourished Orientation/consciousness: patient oriented x3 HENMT Head: Yes normocephalic and Yes atraumatic Eyes General: appearance normal, both eyes and all related structures Pupils: Equal, round and reactive pupils present EOM: EOMs intact bilaterally Resp Other: Coarse breath sounds, upper air way secretions Effort & Inspection: normal respiratory effort Auscultation: clear to auscultation bilaterally Cardio Rate: regular rate Rhythm: regular rhythm Heart sounds: S1 normal heart sound present, S2 normal heart sound present, no gallops, no murmurs and no rubs Neuro General: patient oriented x3 and gait normal Cranial nerves: Yes Equal, round and reactive pupils present Psych Affect: normal affect Assessment and Plan Assessment & Plan (1) ADHD (attention deficit hyperactivity disorder), combined type: Code(s): F90.2 - Attention-deficit hyperactivity disorder, combined type Plan: Patient?is?taking?bupropion?for?ADHD. He?had?been?on?Adderall?but?this?was?discontinued?due?to?tachycardia. He?notes?that?bupropion?does?not?work?as?well?but?is?better?than?nothing. We?had?discussed?that?we?could?trial?Strattera?which?is?less?likely?to?cause?tac hycardia?if?patient?were?to?get?his?heart?rate?down?into?the?80s?but?so?far?has? not?been?able?to?do?so. Encouraged?exercise?and?weight?loss He?has?an?appointment?with?cardiology?in?March We?can?follow-up?after?this (2) Tachycardia: Code(s): R00.0 - Tachycardia, unspecified Plan: Heart?rate?is?controlled?with?metoprolol. Taking?medication?as?prescribed?and?no?adverse?effects. Continue?metoprolol Follow-up?with?Cardiology?as?recommended (3) Viral illness: Code(s): B34.9 - Viral infection, unspecified Plan: Mild?rhinitis?and?some?coarse?breath?sounds?but?lungs?are?otherwise?clear Should?resolve?spontaneously Orders: Orders Comprehensive [place]. Panel Fast Today Z00.00 - Encounter for general adult medical examination without abnormal findings Lipid Panel Today Z00.00 - Encounter for general adult medical examination without abnormal findings TSH reflex Free T4 Today Z00.00 - Encounter for general adult medical examination without abnormal findings UA and rflx microscopic Today Z00.00 - Encounter for general adult medical examination without abnormal findings Microalbumin, Random (w Creat) Today I10 - Essential (primary) hypertension Coding Level of Care Code Est Pt Level 3 (11258) Diagnoses ADHD (attention deficit hyperactivity disorder), combined type F90.2 Tachycardia R00.0 Viral illness B34.9
[2024-01-04 11:53] VITALS: BP 128/74; PULSE 97; O2SAT 97; BMI 40.4
== END 2024-01-04 12:30 | disposition home or self-care (01) ==
PROVIDERS: PCP Family Medicine; Visit Provider Family Medicine
DX: F90.2 Attention-deficit hyperactivity disorder, combined type (principal); R00.0 Tachycardia, unspecified; B34.9 Viral infection, unspecified
CPT/HCPCS: 99213

== ENCOUNTER → 2024-03-25 09:51 | Outpatient (REF) | payer OTHER, SELFPAY ==
--- NOTE | 2024-03-25 09:59 | CA_ITS ---
Transthoracic Echocardiogram Patient (Last, First, Middle): Jamarcus Zendejas J Gender: Male Date of : 2000 Age: 23 Procedure Date: 03/25/2024 Procedure Type: Transthoracic Echocardiogram Location: OP Height: 182. cm Weight: 127.01 kg BSA: 2.45 m2 Heart Rate: 70 bpm BP: 130 / 70 mmHg Equipment Specialist: KELVIN Referring MD: Konrad Boston MD Symptoms: R00.0 - Tachycardia, unspecified Study Quality: Fair ECG Rhythm: Sinus Conclusions: - The left ventricular systolic function is normal. The calculated ejection fraction is 58% by biplane method. - No obvious valvular pathology seen on this study. Findings Left Ventricle Normal left ventricular cavity size. There is normal left ventricular wall thickness. The left ventricular systolic function is normal. The calculated ejection fraction is 58% by biplane method. There is no evidence of regional wall motion abnormalities. Diastolic function is normal for age. LV peak GLS -17.3%. Right Ventricle Mildly increased right ventricular cavity size. There is normal right ventricular systolic function. Atria Both atria are normal in size. Aortic Valve There is a normal trileaflet aortic valve. There is no aortic valve stenosis. There is no aortic valve regurgitation. Mitral Valve The mitral valve appears normal. There is no mitral valve regurgitation. There is no mitral valve stenosis. Pulmonic Valve The pulmonic valve is likely normal. Tricuspid Valve Normal tricuspid valve structure. There is trace tricuspid valve regurgitation. There is no evidence of pulmonary hypertension. Great Vessels The asc aorta is normal in size. Venous The inferior vena cava is normal in size and collapses greater than 50% with inspiration. Pericardium/Pleural There is a trivial pericardial effusion. Prior Study Comparison No significant change compared to prior study dated: 02/01/2023. Recommendations, Care & Conclusions No obvious valvular pathology seen on this study. Measurements 2D Linear Measurements IVSd: 0.81 0.6-0.9/0.6-1.0 cm LVIDd: 5.31 3.9-5.3/4.2-5.9 cm LVIDd Index: 2.17 2.4-3.2/2.2-3.1 cm/m2 LVIDs: 2.85 2.0-3.6 cm LVPWd: 0.99 0.7-1.1 cm LA Diam: 3.80 2.7-3.8/3.0-4.0 cm LAIDs Index: 1.55 1.5-2.3 cm/m2 LV Mass: 216.67 67-162/88-224 g LV Mass Index: 88.44 43-95/49-115 g/m2 LVOT Diam: 2.20 3.0+(-)1.3 cm 2D Systolic Function EF 4C: 61.30 >55% EF 2C: 57.50 >55% EF BiP: 57.90 >55% Mitral Valve MV Pk E: 1.19 MV PK A: 0.65 MV Decel Time: 165.00 E/A: 1.80 E'Lateral: 16.90 E'Medial: 11.60 E/E' Med: 10.30 E/E' Lat: 7.00 PHT: 48.00 MVA PHT: 4.58 Decel Cidra: 7.20 Aortic Valve AoV Pk Rafa: 1.39 AoV Mn Rafa: 0.95 AoV VTI: 0.28 AoV Pk Grad: 8.00 Aov Mn Grad: 4.00 WILMAN Cont.VTI: 3.23 LVOT LVOT Pk Rfaa: 1.13 LVOT Mn Rafa: 0.78 LVOT VTI: 0.24 LVOT Pk Grad: 5.00 LVOT Mn Grad: 3.00 LVOT Diam: 2.20 LVOT Area: 3.80 Diastolic Function MV Pk E: 1.19 MV Pk A: 0.65 E/A: 1.80 E'Medial: 11.60 E/E' Med: 10.30 E' Laterial: 16.90 E/E' Lat: 7.00 Right Ventricle TAPSE (mm): 25.30 TVS' Rafa: 13.60 Tricuspid Valve TR Pk Rafa: 2.04 TR Pk Grad: 17.00 RA Press: 3.00 RVSP: 20.00 Great Vessels Aorta Sinus of Valsalva: 3.40 2.0-3.5 cm Ao Asc: 2.90 2.1-3.4 cm Pulmonary Valve PV Pk Rafa: 1.24 Peak PV Grad: 6.00 Updated in Other Vendor System with Status of Final Konrad Boston MD electronically signed on 03/26/2024 10:14:03 AM with status of Final
--- NOTE | 2024-03-25 10:34 | HM_ITS ---
Conclusion: 1. Patient was monitored for total period of 2 days and 23 hours 2. Baseline was normal sinus rhythm with average heart rate of 80 beats per minute 3. No significant pauses or arrhythmias detected 4. No patient reported events MTDD
== END ==
LOC: HO.CARD 09:51
PROVIDERS: PCP Family Medicine; Visit Provider Internal Medicine
DX: I42.9 Cardiomyopathy, unspecified (principal); R00.0 Tachycardia, unspecified; R00.2 Palpitations
CPT/HCPCS: 93242; 93306; 93356

== ENCOUNTER → 2024-03-25 09:59 | Outpatient (BNV) | payer OTHER, SELFPAY | PROVIDERS: PCP Family Medicine; Visit Provider Internal Medicine | DX: R00.2 Palpitations (principal) | CPT/HCPCS: 93244; 93306; 93356 ==

== ENCOUNTER 2024-04-04 14:42 | Outpatient (AMB) | payer OTHER, SELFPAY ==
--- NOTE | 2024-04-04 14:45 | MHC.OFFVIS ---
Vital Signs 04/04/24 14:46 Height 5 ft 11 in Weight 272 lb 7.861 oz BMI 38.0 BP 128/70 Blood Pressure Location Lt brachial Position Sitting Pulse 83 Intake Visit Reasons: 1 year follow up Armature Tester Required: No Accompanied by: Self / Same As Patient Allergies Nuts Allergy (Unknown, Uncoded 01/04/24 11:53) anaphylaxis oxycodone Allergy (Unknown, Uncoded 01/04/24 11:53) Nausea Medication List - Last Reconciled 04/04/24 by Konrad Boston MD bupropion HCl XL 150 mg PO QAM 30 days cetirizine (Zyrtec) 10 mg PO DAILY fluticasone propionate 220 mcg/actuation (Flovent HFA) 1 puff inhalation Q12H 30 days metoprolol succinate ER 75 mg (1.5 x 50 mg) PO DAILY 90 days montelukast 10 mg PO DAILY tiotropium bromide (Spiriva with HandiHaler) 1 cap inhalation DAILY 30 days HPI Comments Details: Jamarcus returns for follow-up. Previously, he was seen in consultation regarding tachycardia. Patient himself does not have any known cardiac issues including cardiomyopathy or congestive heart failure. He states he has asthma but well controlled. Within limits of his activity, he does not really feel any symptoms like shortness of breath or chest pains or palpitations or in fact anything else of cardiac nature. Apparently, he was on Adderall and primary care physician at stopped it. He has also been put on beta-blockers. He was quite overweight at almost 300 lb, but he has been trying to lose weight and it seems he has lost more than 30+ lb recently. No documented obstructive sleep apnea. Since last visit, he states he is feeling good. No new issues. COUNTS INCLUDE 234 BEDS AT THE [facility] Medical History (Updated 01/04/24 @ 12:26 by Heriberto Love) ADHD No pertinent past medical history Surgical History Hx of tonsillectomy Hx of myringotomy Family History Mother No problems noted. Father No problems noted. 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 Current occupational exposures/hazards: No Cognitive needs: No Hearing needs: No Vision needs: Yes Review of Systems Const Denies chills, Denies fatigue, Denies fever(s), Denies weight gain and Denies weight loss ENT Denies dizziness Card Denies chest pain, Denies leg edema, Denies lightheadedness, Denies palpitations, Denies dyspnea on exertion, Denies orthopnea and Denies other Resp Denies cough and Denies dyspnea on exertion GI Denies hematochezia and Denies change in stool character Musc Denies abnormal gait, Denies muscle weakness, Denies numbness, Denies radiating pain into limb and Denies tingling Neuro Denies abnormal gait, Denies dizziness, Denies numbness and Denies tingling Endo Denies fatigue and Denies palpitations Physical Exam Vital Signs: Last Vital Signs Pulse 83 04/04/24 14:46 BP 128/70 04/04/24 14:46 BMI result Body Mass Index 38.0 Const General: comfortable and no acute distress Orientation/consciousness: patient oriented x3 HEENT Other: Unremarkable Head: Yes normal to inspection Neck Neck: Yes normal visual inspection Chest Chest palpation & inspection: normal inspection of the chest Resp Auscultation: clear to auscultation bilaterally Cardio Palpation: normal PMI Heart sounds: S1 normal heart sound present, S2 normal heart sound present, no gallops, no murmurs and no rubs GI Palpation (GI): Soft to palpation Back/Spine/Pelvis Other: unremarkable Skin General skin exam: no rashes or lesions noted Neuro General: patient oriented x3 Extrem General: Yes normal to inspection Psych Mental Status: mental status grossly normal Office Procedures EKG Details: EKG with sinus rhythm at 83/Min; no significant ST-T changes; [place] [address]-[id number], Complete Assessment & Plan Assessment & Plan (1) Tachycardia: Code(s): R00.0 - Tachycardia, unspecified Category: Medical (2) Obese: Code(s): E66.9 - Obesity, unspecified Category: Medical (3) Asthma, moderate persistent: Code(s): J45.40 - Moderate persistent asthma, uncomplicated Category: Medical Plan Pertinent data reviewed. EKG in the past has shown sinus tachycardia, but today shows normal sinus rhythm with controlled rate. Echocardiogram with LVEF of 67%. No wall motion abnormalities. Otherwise unremarkable. Holter shows normal sinus rhythm; average heart rate of 84/Min. About 10% the time, rate greater than 100/Min. In the sleep study, no evidence of sleep apnea. Excessive snoring. Overall, sinus tachycardia thought to be from some combination of obesity, asthma as well as medications used for asthma, some components of deconditioning/inappropriate sinus tachycardia. Main recommendation is to lose weight and he has been successful and lost about 30+ lb. Advised to lose much more and he states he will continue to try. If he indeed is very successful in losing a significant amount of weight, then the heart rate should most likely come down. With regard to beta-blockers, advised him to cut back on the dose. Instead of metoprolol succinate 75 mg daily, he can try 50 mg daily while he is actually losing weight. Once he is more successful in taking weight off, could be an even lower dose and eventually stop it completely. We discussed this in detail today. He wants to discuss that with PCP too. We will follow-up in 1 year. In the interim, he will call us with any concerns or questions. Coding Level of Care Code Est Pt Level 3 (19886) Diagnoses Tachycardia R00.0 Obese E66.9 Asthma, moderate persistent J45.40 CPT Codes EKG - CPT: 40930-[id number], Complete ([id number])
[2024-04-04 14:46] VITALS: BP 128/70; PULSE 83; BMI 38.0
== END 2024-04-04 15:08 | disposition home or self-care (01) ==
PROVIDERS: PCP Family Medicine; Visit Provider Internal Medicine
DX: R00.0 Tachycardia, unspecified (principal); E66.9 Obesity, unspecified; J45.40 Moderate persistent asthma, uncomplicated
CPT/HCPCS: 93010; 99213

== ENCOUNTER → 2024-04-04 14:42 | Outpatient (BNVA) | payer OTHER, SELFPAY | PROVIDERS: PCP Family Medicine; Visit Provider Internal Medicine | DX: R00.0 Tachycardia, unspecified (principal); J45.40 Moderate persistent asthma, uncomplicated; E66.9 Obesity, unspecified; Z68.38 Body mass index [BMI] 38.0-38.9, adult; Z79.899 Other long term (current) drug therapy | CPT/HCPCS: 93005 ==

== ENCOUNTER 2024-04-15 15:51 | Outpatient (AMB) | payer OTHER, SELFPAY ==
--- NOTE | 2024-04-15 16:01 | MHC.PC.OV ---
Vital Signs 04/15/24 16:05 Height 5 ft 9.06 in Weight 273 lb 6 oz BMI 40.3 BP 130/90 H Blood Pressure Location Lt brachial Position Sitting Respiration 20 Pulse 82 Pulse Source Palpation Intake Visit Reasons: CPE with f/u labs and health maint. 30 min Intake Note: cpe, follow up from cardio appt Allergies Nuts Allergy (Unknown, Uncoded 01/04/24 11:53) anaphylaxis oxycodone Allergy (Unknown, Uncoded 01/04/24 11:53) Nausea Medication List - Last Reconciled 05/01/24 by Danuta Grace MD bupropion HCl XL 150 mg PO QAM 30 days cetirizine (Zyrtec) 10 mg PO DAILY fluticasone propionate 220 mcg/actuation (Flovent HFA) 1 puff inhalation Q12H 30 days metoprolol succinate ER 75 mg (1.5 x 50 mg) PO DAILY 90 days montelukast 10 mg PO DAILY tiotropium bromide (Spiriva with HandiHaler) 1 cap inhalation DAILY 30 days Tobacco use date assessed: 04/15/24 Dental Screening Dental Screen Date: 04/15/24 Did you have a dental visit in the last 12 months?: Yes Did you have a dental problem in the last 6 months where you did not have access to dental care?: No Was dental information given to patient?: Patient has dentist HPI HPI Comments History of Present Illness Details The patient is a 23 y/o male with past medical history of tachycardia, allergic rhinitis, asthma presenting to establish care/CPE CV: Tachycardia. Has followed with cardiology. consultation regarding tachycardia. ADD: Worsened tachycardia on adderall. On bupropion. Still having issues ROS see HPI PHYSICAL EXAM: GENERAL: Alert and oriented x 3. NAD EYES: EOMI. Anicteric. HENT: Moist mucous membranes. No scleral icterus. No cervical lymphadenopathy. LUNGS: Clear to auscultation bilaterally. CARDIOVASCULAR: Regular rate and rhythm. No murmur. No JVD. ABDOMEN: Soft, non-tender +bs EXTREMITIES: No edema. Non-tender. SKIN: No rashes or lesions. Warm. NEUROLOGIC: No focal neurological deficits. CN II-XII grossly intact PSYCHIATRIC: Cooperative. Appropriate mood and affect [facility] Medical History ADHD No pertinent past medical history Surgical History Hx of tonsillectomy Hx of myringotomy Family History Mother No problems noted. Father No problems noted. 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 Umesh Jaramillo, Vandana Galvez, Pastor Barone and colleagues, with an educational torres from [employer]. Physical exam (Primary Care) Vital Signs: Last Vital Signs Pulse 82 04/15/24 16:05 Resp 20 04/15/24 16:05 BP 130/90 H 04/15/24 16:05 BMI result Body Mass Index 40.3 Tobacco/Smoking Status: Tobacco use Status Tobacco use date assessed 04/15/24 04/15/24 16:05 Patient Tobacco Use Status Never used Tobacco 04/15/24 16:05 e-Cigarette/Vaping Use Never Used 04/15/24 16:05 Thrive Assessment: Date of Thrive Assessment Date Thrive assessed 11/03/23 04/15/24 16:05 Immunizations Boostrix Tdap 2.5 Lf unit-8 mcg-5 Lf/0.5 mL intramuscular syringe Performing Provider: Danuta Grace MD Performing [place] [facility] Administered by: Khushboo Aguiar CMA on 04/15/24 17:03 Dose Route Admin Location Dispensed Lot Number Expiration Date NDC Team 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 Eligible 04/15/24 Private Assessment and Plan Assessment & Plan (1) Annual physical exam: Code(s): Z00.00 - Encounter for general adult medical examination without abnormal findings Plan: Preventive measures for age discussed Lab work ordered Referral for psych Tdap administered Orders: Orders Complete Blood Count Auto Diff 04/15/24 Z00.00 - Encounter for general adult medical examination without abnormal findings, R00.0 - Tachycardia, unspecified, F90.2 - Attention-deficit hyperactivity disorder, combined type Comprehensive Met. Panel 04/15/24 Z00.00 - Encounter for general adult medical examination without abnormal findings, R00.0 - Tachycardia, unspecified, F90.2 - Attention-deficit hyperactivity disorder, combined type Lipid Panel 04/15/24 Z00.00 - Encounter for general adult medical examination without abnormal findings, R00.0 - Tachycardia, unspecified, F90.2 - Attention-deficit hyperactivity disorder, combined type TSH reflex Free T4 04/15/24 Z00.00 - Encounter for general adult medical examination without abnormal findings, R00.0 - Tachycardia, unspecified, F90.2 - Attention-deficit hyperactivity disorder, combined type AMB Hemoglobin A1c 04/15/24 Z13.9 - Encounter for screening, unspecified, Z00.00 - Encounter for general adult medical examination without abnormal findings, R00.0 - Tachycardia, unspecified, F90.2 - Attention-deficit hyperactivity disorder, combined type TDaP Immunization 04/15/24 Z23 - Encounter for immunization Referrals Psychiatry Outpatient Consultation Service R00.0 - Tachycardia, unspecified, F90.2 - Attention-deficit hyperactivity disorder, combined type Coding Level of Care Code Est Pt Prev Care 18-39y(68508) Diagnoses Annual physical exam Z00.00
[2024-04-15 16:05] VITALS: BP 130/90; PULSE 82; RESP 20; BMI 40.3
== END 2024-04-15 16:58 | disposition home or self-care (01) ==
PROVIDERS: PCP Family Medicine; Visit Provider Internal Medicine
DX: Z00.00 Encounter for general adult medical examination without abnormal findings (principal)
CPT/HCPCS: 90471; 90715; 99395

== ENCOUNTER 2024-06-11 13:46 | Outpatient (AMB) | payer OTHER, SELFPAY ==
--- NOTE | 2024-06-11 14:05 | A.OFFPSYCH_ITS ---
Intake Intake Visit Reasons: consultation Allergies Nuts Allergy (Unknown, Uncoded 01/04/24 11:53) anaphylaxis oxycodone Allergy (Unknown, Uncoded 01/04/24 11:53) Nausea Medication List - Last Reconciled 06/11/24 by Mirta Dennis APRN budesonide 180 mcg/actuation (Pulmicort Flexhaler) 1 inh inhalation BID 30 days bupropion HCl XL 150 mg PO QAM 30 days cetirizine (Zyrtec) 10 mg PO DAILY metoprolol succinate ER 75 mg (1.5 x 50 mg) PO DAILY 90 days montelukast 10 mg PO DAILY tiotropium bromide (Spiriva with HandiHaler) 1 cap inhalation DAILY 30 days HPI- Psychiatric Chief Complaint: consultation HPI Narrative: pt 24 yo with diagnosed ADHD here for medication evaluation; pt had been on adderall with good effect but came off due to tachycardai; had cardiac work up including holter moniter and echo; I reviewed PCP notes and cardiology notes. Pt was advised to lose weight and started on metoprolol. He has lost 35 #. He bikes and eats less. he feels successful; a family member is losing weight with him which helps him maintain motivation. Pt has sleep studa=y showed no sleep apnea. He does not use tobacco, uses etoh 1-2 times a month having only 1- drinks at a time. he uses no THC or other drugs. He sleeps 7-8 hours a night.. His most recent EKG showed HR at 83. Pt did very well in High school and first 2 yrs of college but 3rd year of college was very dificult off the the adderall; he did not do well and has since decided to transfer and change careers. He plans to start school in sep. he is concerned about ADHD despite being on wellbutrin which has not helped much. He completed the Adult self report scale for ADHD and scored 25 on the hyperactivity scale and 30 on the inattention scale. He continues to have moderate to high symptoms of ADHD that interfere with f unctioning. Past Psychiatric History: dx ADHD in childhood; took adderall from middle school until 2022 Subjective Subjective Subjective Medication Compliance: Yes Side effects from medications: No Review of Systems Medical Review of Systems: unchanged Mental Status Exam Mental Status Exam Patient Appearance: Well Grooomed and Appropriate Patient Orientation: Person, Place and Situation Level of Consciousness: Awake, Appropriate and Alert Patient Behavior: Appropriate and Cooperative Mood Description: Calm and Withdrawn Affect Description: Withdrawn Patient Cognition Impaired: No Ability to Follow Directions: Good Speech Pattern: Clear and Soft-Spoken Memory Description: Intact Hallucinations: None Delusions: Not Present Thought Process: Intact and Goal Oriented Thought Content: positive for Intact and positive for Goal Oriented Judgement: Good Results Reviewed Results Reviewed: reviewed ekgs, sleep studay, and echo, cardiology notes and pcp note Assessment and Plan Assessment & Plan (1) Tachycardia: Status: Acute Code(s): R00.0 - Tachycardia, unspecified (2) ADHD (attention deficit hyperactivity disorder), combined type: Status: Acute Code(s): F90.2 - Attention-deficit hyperactivity disorder, combined type Plan trial of qelbree 100mg take one cap daily fro 5 dyas then increase to 2 caps (200mg daily repeat ekg in 3 weeks follow up in 3-4 weeks Orders: Orders ECG 12 lead EKG Today R00.0 - Tachycardia, unspecified Counseling and coordination of Care Pt. Self Management counseling: Exercise, Maintenance-social rhythm, Mod caffeine/ETOH intake, Nutrition education and improvement, Sleep hygiene, Behavior activation, General coping skills and Problem solving Medication management counseling: Effectiveness, Side effects, Dosing range, Duration, Drug interaction and Adherence Diagnosis and Prognosis Counseling: Accuracy of diagnosis, Prognosis over time, Impact of diagnosis on life functions, Impact of family relationship, Problematic behaviors secondary to diagnosis and Adequacy of current interventio ns Details: I spent 70 minutes reviewing the record, seeing the patient and documenting in the medical record. Counseling provided to the patient/caregiver as outlined below. Addressed patient/caregiver concerns regarding current medication regime including effective adherence. Addressed patient/caregiver concerns regarding diagnosis and prognosis including accuracy of diagnosis, prognosis over time, impact of diagnosis. Addressed patient/caregiver concerns regarding impact of recent stressors. 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
== END 2024-06-11 14:51 | disposition home or self-care (01) ==
LOC: HO.HOP 13:46
PROVIDERS: PCP Family Medicine; Visit Provider Clinical Nurse Specialist Psychiatric/Mental Health
DX: F90.2 Attention-deficit hyperactivity disorder, combined type (principal); R00.0 Tachycardia, unspecified
CPT/HCPCS: 99215

== ENCOUNTER → 2024-06-11 13:46 | Outpatient (BNVA) | payer OTHER, SELFPAY | PROVIDERS: PCP Family Medicine; Visit Provider Clinical Nurse Specialist Psychiatric/Mental Health ==

== ENCOUNTER → 2024-06-25 11:27 | Outpatient (REF) | payer OTHER, SELFPAY ==
--- NOTE | 2024-06-25 11:30 | ECG_ITS ---
Test Reason : TACHY Blood Pressure : / mmHG Vent. Rate : 068 BPM Atrial Rate : 068 BPM P-R Int : 156 ms QRS Dur : 110 ms QT Int : 356 ms P-R-T Axes : 025 030 045 degrees QTc Int : 378 ms Normal sinus rhythm Normal ECG No previous ECGs available Referred By: Mirta Dennis Electronically Signed By:JESUS MARIE MD
== END ==
LOC: HO.CARD 11:27
PROVIDERS: PCP Family Medicine; Visit Provider Clinical Nurse Specialist Psychiatric/Mental Health
DX: R00.0 Tachycardia, unspecified (principal)
CPT/HCPCS: 93005

== ENCOUNTER → 2024-06-25 11:30 | Outpatient (BNV) | payer OTHER, SELFPAY | PROVIDERS: PCP Family Medicine; Visit Provider Internal Medicine Cardiovascular Disease | DX: R00.0 Tachycardia, unspecified (principal) | CPT/HCPCS: 93010 ==

== ENCOUNTER 2024-07-09 13:17 | Outpatient (AMB) | payer OTHER, SELFPAY ==
--- NOTE | 2024-07-09 13:29 | A.OFFPSYCH_ITS ---
Intake Intake Visit Reasons: follow up Risk Control Director Required: No Allergies Nuts Allergy (Unknown, Uncoded 01/04/24 11:53) anaphylaxis oxycodone Allergy (Unknown, Uncoded 01/04/24 11:53) Nausea Medication List - Last Reconciled 07/09/24 by Mirta Dennis APRN atomoxetine (Strattera) 10 mg PO DAILY budesonide 180 mcg/actuation (Pulmicort Flexhaler) 1 inh inhalation BID 30 days bupropion HCl XL 150 mg PO QAM 30 days cetirizine (Zyrtec) 10 mg PO DAILY metoprolol succinate ER 75 mg (1.5 x 50 mg) PO DAILY 90 days montelukast 10 mg PO DAILY tiotropium bromide (Spiriva with HandiHaler) 1 cap inhalation DAILY 30 days HPI- Psychiatric Chief Complaint: follow up HPI Narrative: Patient has been taking Strattera 10 mg daily. His insurance would not cover ?Steve. He reports improvement in his focus and concentration on the Strattera. He had stopped the Wellbutrin with no adverse effects. He has no side effects from the Strattera. His PHQ-9 equals 0 his QUINTON 7 equals 1. He reports sleeping well. He continues to have some ADHD symptoms he completed an ADHD self report scale he scored 13 on inattention and 11 on hyperactivity. Past Psychiatric History: dx ADHD in childhood; took adderall from middle school until 2022 Subjective Subjective Subjective Medication Compliance: Yes Side effects from medications: No Review of Systems Medical Review of Systems: unchanged Mental Status Exam Mental Status Exam Patient Appearance: Well Grooomed and Appropriate Patient Orientation: Person, Place, Time and Situation Level of Consciousness: Awake Patient Behavior: Appropriate and Cooperative Mood Description: Nervous Affect Description: Nervous Patient Cognition Impaired: No Ability to Follow Directions: Good Speech Pattern: Clear and Appropriate Memory Description: Intact Hallucinations: None Delusions: Not Present Thought Process: Intact Thought Content: positive for Intact Judgement: Good Assessment and Plan Assessment & Plan (1) ADHD (attention deficit hyperactivity disorder), combined type: Status: Acute Code(s): F90.2 - Attention-deficit hyperactivity disorder, combined type Plan Increase Strattera to 18 mg daily consider increase to 36mg at next visit return in 4 weeks. Medications: New atomoxetine 18 mg PO DAILY 30 caps 3RF Discontinued atomoxetine (Strattera) Discontinued Reason: Doctor's Order 10 mg PO DAILY 30 caps 0RF bupropion HCl XL Discontinued Reason: Doctor's Order 150 mg PO QAM 30 days 30 tabs 2RF Counseling and coordination of Care Pt. Self Management counseling: Maintenance-social rhythm, Mod caffeine/ETOH intake, Sleep hygiene, Behavior activation, General coping skills and Problem solving Details: I spent [] minutes reviewing the record, seeing the patient and documenting in the medical record. Counseling provided to the patient/caregiver as outlined below. Addressed patient/caregiver concerns regarding current medication regime including effective adherence. Addressed patient/caregiver concerns regarding diagnosis and prognosis including accuracy of diagnosis, prognosis over time, impact of diagnosis. Addressed patient/caregiver concerns regarding impact of recent stressors. 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
== END 2024-07-09 15:17 | disposition home or self-care (01) ==
LOC: HO.HOP 13:17
PROVIDERS: PCP Family Medicine; Visit Provider Clinical Nurse Specialist Psychiatric/Mental Health
DX: F90.2 Attention-deficit hyperactivity disorder, combined type (principal)
CPT/HCPCS: 99214

== ENCOUNTER → 2024-07-09 13:17 | Outpatient (BNVA) | payer OTHER, SELFPAY | PROVIDERS: PCP Family Medicine; Visit Provider Clinical Nurse Specialist Psychiatric/Mental Health ==

== ENCOUNTER 2024-08-22 15:22 | Outpatient (AMB) | payer OTHER, SELFPAY ==
--- OUTSIDE RECORDS SUMMARY | 2024-08-28 04:17 | XMS_ITS | Continuity of Care Document ---
Author Organization [facility] Address [address] [address] [place] [address] Phone Care Team Providers Care Cash Van Salesperson Name Role Phone Nancy Lorenzo MD Unavailable Unavailab le Allergies, Adverse Reactions, Alerts Substance Reaction Status Criticality No Known allergies Medications Medication Instructions Dosage Effective Dates (start - stop) Status Comments ADDERALL (unknown strength) Not Available - Active Procedures Procedure Date OFFICE/OUTPATIENT VISIT, [facility] OFFICE/OUTPATIENT VISIT, [facility] BIOPSY, SKIN LESION TISSUE EXAM BY PATHOLOGIST Advance Directives Directive Yes / No Effective Date File Name No Information Encounters Encounter Description Practice Location Reason(s) For Visit Diagnoses Date Provider Providers Copied on Encounter OFFICE/OUTPA TIENT VISIT, [facility], [address] [place] [address], [id number], [place] tel:[phone] mole(s) (chief complaint) Benign neoplasm of skin of trunk, except scrotumScreen ing for malignant neoplasms of the skinOther specified congenital anomalies of skin 4 Bj Cruz. [address] [place], [place], [id number]. tel:[phone] OFFICE/OUTPA TIENT VISIT, [facility], [address] [place] [address], [address], [place] tel:[phone] mole(s) (chief complaint) Benign neoplasm of scalp and skin of neckNeoplasm of uncertain behavior of skin 4 Bj Cruz. [address] [place], [place], [id number]. tel:[phone] [facility], [address] [place] [address], [address], tel:[phone] [facility] No Information 4 sAhley Judge. [address] [place], [place], [id number]. tel:[phone] Referring Provider: Nancy Villa, [address] [place], [address] . tel:[phone] Family History Family Member Type Diagnosis Age At Onset No Information Payers Payer name Insurance type Covered alliance party ID Authorsergio swanson(s) [facility] [id number] Social History Type Description Quantity Date Captured Comments Alcohol Use Details Unknown Caffeine Use Details Unknown Tobacco Use Status No Information Smoking Status No Information Sex Male Chief Complaint And Reason For Visit From encounter dated '03/10/2014 15:00'. mole(s) (chief complaint) Reason For Referral Reason For Referral No Information History Of Present Illness Encounter Date Complaint History Of Prese nt Illness No Information Functional Status Date Functional Assessmen t No Information Instructions Date Instruction Additional Infor farhana Patient understood a nd made an informed decision regarding treatment Wound care instructions given Discussed risks/benefits/side ef fects of treatment Assessments Type Assessment Date No Information Mental Status Date Cognitive Assessment Orientation - [place] ed to time, place, person, situation. Patient Care Teams Name Effective Dates (start - stop) Status Members No Information
--- NOTE | 2024-11-07 09:06 | MHC.OFFVISPS ---
Intake Intake Visit Reasons: f/u consultation Allergies Nuts Allergy (Unknown, Uncoded 01/04/24 11:53) anaphylaxis oxycodone Allergy (Unknown, Uncoded 01/04/24 11:53) Nausea Medication List - Last Reconciled 11/07/24 by Mirta Dennis APRN atomoxetine 18 mg PO DAILY budesonide 180 mcg/actuation (Pulmicort Flexhaler) 1 inh inhalation BID 30 days cetirizine (Zyrtec) 10 mg PO DAILY metoprolol succinate ER 75 mg (1.5 x 50 mg) PO DAILY 90 days montelukast 10 mg PO DAILY tiotropium bromide (Spiriva with HandiHaler) 1 cap inhalation DAILY 30 days HPI- Psychiatric Chief Complaint: f/u consultation HPI Narrative: pt tolerating strattera; he thinks it is helping with focus and concentration; no side effects; no tachycarida; sleep and pappetite intact; discussed increase to strattera 40mg daily for efficacy. pt in agreement. Past Psychiatric History: dx ADHD in childhood; took adderall from middle school until 2022 Subjective Subjective Subjective Medication Compliance: Yes Side effects from medications: No Review of Systems Medical Review of Systems: unchanged Mental Status Exam Mental Status Exam Patient Appearance: Well Grooomed and Appropriate Patient Orientation: Person, Place, Time and Situation Level of Consciousness: Awake, Appropriate and Alert Patient Behavior: Appropriate and Cooperative Mood Description: Calm and Appropriate Affect Description: Calm and Appropriate Patient Cognition Impaired: No Ability to Follow Directions: Good Speech Pattern: Clear and Soft-Spoken Memory Description: Intact Hallucinations: None Delusions: Not Present Thought Process: Intact and Goal Oriented Thought Content: positive for Intact and positive for Goal Oriented Judgement: Good Assessment and Plan Assessment & Plan (1) ADHD (attention deficit hyperactivity disorder), combined type: Status: Acute Code(s): F90.2 - Attention-deficit hyperactivity disorder, combined type Plan increase strattera to 40 mg daily stop strattera 18mg return iin 4-6 weeks Medications: New atomoxetine (Strattera) 40 mg PO DAILY 30 caps 1RF Discontinued atomoxetine Discontinued Reason: Doctor's Order 18 mg PO DAILY 90 caps 1RF Counseling and coordination of Care Pt. Self Management counseling: Maintenance-social rhythm, Mod caffeine/ETOH intake, Nutrition education and improvement, Sleep hygiene, Behavior activation, General coping skills and Problem solving Medication management counseling: Effectiveness, Side effects, Dosing range, Duration, Drug interaction and Adherence Diagnosis and Prognosis Counseling: Accuracy of diagnosis, Prognosis over time, Impact of diagnosis on life functions, Impact of family relationship, Problematic behaviors secondary to diagnosis and Adequacy of current interventions Details: I spent 35 minutes reviewing the record, seeing the patient and documenting in the medical record. Counseling provided to the patient/caregiver as outlined below. Addressed patient/caregiver concerns regarding current medication regime including effective adherence. Addressed patient/caregiver concerns regarding diagnosis and prognosis including accuracy of diagnosis, prognosis over time, impact of diagnosis. Addressed patient/caregiver concerns regarding impact of recent stressors. 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
== END 2024-08-22 15:49 | disposition home or self-care (01) ==
LOC: HO.HOP 15:22
PROVIDERS: PCP Family Medicine; Visit Provider Clinical Nurse Specialist Psychiatric/Mental Health
DX: F90.2 Attention-deficit hyperactivity disorder, combined type (principal)
CPT/HCPCS: 99214

== ENCOUNTER 2024-09-16 16:29 | Outpatient (AMB) | payer OTHER, SELFPAY ==
--- OUTSIDE RECORDS SUMMARY | 2024-09-16 16:31 | XMS_ITS | Continuity of Care Document ---
Author Organization [facility] Address [address] [place] [address] [place] [address] Phone Care Team Providers Care Beauty Artist Name Role Phone Nancy Lorenzo MD Unavailable Unavailab le Allergies, Adverse Reactions, Alerts Substance Reaction Status Criticality No Known allergies Medications Medication Instructions Dosage Effective Dates (start - stop) Status Comments ADDERALL (unknown strength) Not Available - Active Procedures Procedure Date OFFICE/OUTPATIENT VISIT, [facility] OFFICE/OUTPATIENT VISIT, [facility] BIOPSY, SKIN LESION TISSUE EXAM BY PATHOLOGIST Advance Directives Directive Yes / No Effective Date File Name No Information Encounters Encounter Description Practice Location Reason(s) For Visit Diagnoses Date Provider Providers Copied on Encounter OFFICE/OUTPA TIENT VISIT, [facility], [address] [place] [address], [id number], [place] tel:[phone] mole(s) (chief complaint) Benign neoplasm of skin of trunk, except scrotumScreen ing for malignant neoplasms of the skinOther specified congenital anomalies of skin 4 Bj Cruz. [address] [place], [place], [id number]. tel:[phone] OFFICE/OUTPA TIENT VISIT, [facility], [address] [place] [address], [address], [place] tel:[phone] mole(s) (chief complaint) Benign neoplasm of scalp and skin of neckNeoplasm of uncertain behavior of skin 4 Bj Cruz. [address] [place], [place], [id number]. tel:[phone] [facility], [address] [place] [address], [address], tel:[phone] [facility]opatho [facility] Lab No Information 4 Ashley Judge. [address] [place], [place], [id number]. tel:[phone] Referring Provider: Nancy Villa, [address] [place], [address] . tel:[phone] Family History Family Member Type Diagnosis Age At Onset No Information Payers Payer name Insurance type Covered constitution party ID Authorsergio swanson(s) [facility] [id number] Social History Type Description Quantity Date Captured [...] Information Instructions Date Instruction Additional Infor farhana Discussed risks/benefits/side ef fects of treatment Wound care instructions given Patient understood a nd made an informed decision regarding treatment Assessments Type Assessment Date No Information Mental Status Date Cognitive Assessment Orientation - [place] ed to time, place, person, situation. Patient Care Teams Name Effective Dates (start - stop) Status Members No Information
--- NOTE | 2024-09-16 16:35 | MHC.OFFVISPS ---
Intake Intake Visit Reasons: depression Shop Director Required: No Allergies Nuts Allergy (Unknown, Uncoded 01/04/24 11:53) anaphylaxis oxycodone Allergy (Unknown, Uncoded 01/04/24 11:53) Nausea Medication List - Last Reconciled 09/16/24 by Mirta Dennis APRN atomoxetine 18 mg PO DAILY budesonide 180 mcg/actuation (Pulmicort Flexhaler) 1 inh inhalation BID 30 days cetirizine (Zyrtec) 10 mg PO DAILY metoprolol succinate ER 75 mg (1.5 x 50 mg) PO DAILY 90 days montelukast 10 mg PO DAILY tiotropium bromide (Spiriva with HandiHaler) 1 cap inhalation DAILY 30 days HPI- Psychiatric Chief Complaint: depression HPI Narrative: pt reports he couldn't tolerate 40mg of strattera; he reports dizziness with the higher dose so he went back to 18mg. He feels it is helping his focus and attention and says he can do everything he needs to do while on the 18mg dose. He denies side effects with it. He denies other medical changes; His mood is good. sleep and appetite intact; His PHQ9= 1 and his GAD7= 1 Past Psychiatric History: dx ADHD in childhood; took adderall from middle school until 2022 Subjective Subjective Subjective Medication Compliance: Yes Side effects from medications: No Review of Systems Medical Review of Systems: unchanged Mental Status Exam Mental Status Exam Patient Appearance: Well Grooomed and Appropriate Patient Orientation: Person, Place, Time and Situation Level of Consciousness: Awake, Appropriate and Alert Patient Behavior: Appropriate and Cooperative Mood Description: Anxious (low level) Affect Description: Anxious Patient Cognition Impaired: No Ability to Follow Directions: Good Speech Pattern: Clear, Appropriate and Coherent Memory Description: Intact Hallucinations: None Delusions: Not Present Thought Process: Intact and Goal Oriented Thought Content: positive for Intact and positive for Goal Oriented Judgement: Good Assessment and Plan Assessment & Plan (1) ADHD (attention deficit hyperactivity disorder), combined type: Status: Acute Code(s): F90.2 - Attention-deficit hyperactivity disorder, combined type Plan continue medication as below return in 6 months Medications: New atomoxetine 18 mg PO DAILY 90 caps 1RF Counseling and coordination of Care Pt. Self Management counseling: Mindfulness, Mod caffeine/ETOH intake, Nutrition education and improvement, Sleep hygiene and Problem solving Medication management counseling: Effectiveness, Side effects, Dosing range, Duration, Drug interaction and Adherence Diagnosis and Prognosis Counseling: Accuracy of diagnosis, Prognosis over time and Adequacy of current interventions Details: I spent 35 minutes reviewing the record, seeing the patient and documenting in the medical record. Counseling provided to the patient/caregiver as outlined below. Addressed patient/caregiver concerns regarding current medication regime including effective adherence. Addressed patient/caregiver concerns regarding diagnosis and prognosis including accuracy of diagnosis, prognosis over time, impact of diagnosis. Addressed patient/caregiver concerns regarding impact of recent stressors. 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
== END 2024-09-16 16:53 | disposition home or self-care (01) ==
LOC: HO.HOP 16:29
PROVIDERS: PCP Family Medicine; Visit Provider Clinical Nurse Specialist Psychiatric/Mental Health
DX: F90.2 Attention-deficit hyperactivity disorder, combined type (principal)
CPT/HCPCS: 99214

== ENCOUNTER → 2024-09-16 16:29 | Outpatient (BNVA) | payer OTHER, SELFPAY | PROVIDERS: PCP Family Medicine; Visit Provider Clinical Nurse Specialist Psychiatric/Mental Health ==